=== PATIENT | male | born 1935 | race Caucasian/White ===

== ENCOUNTER 2018-09-23 14:57 | Emergency (ER) | payer MEDICARE ==
[~2018-09-23 14:57] MED LIST: AMIO200T5 PO; ASPI-555 PO; CITA10TA7 PO; CYAN1TAB68 PO; HYDR-4064 PO; L.AC1CAP6 PO; METO-408 PO; POLY454P5 PO; PRAV20TA4 PO; SITA50TA PO; XALA2.5OS OD
[2018-09-23 15:10] LABS: EOSINOPHILS % (AUTO) 1.4 % (0.0-8.0); HEMATOCRIT 41.7 % (42-54); LYMPHOCYTES % (AUTO) 17.9 % (21.0-51.0); MEAN CORPUSCULAR HEMOGLOBIN 31.2 pg (27.0-33.0); MEAN CORPUSCULAR VOLUME 91.7 fL (79-99); NEUTROPHILS % (AUTO) 71.7 % (40.0-77.0); NUCLEATED RED BLOOD CELLS 0.4 % (0.0-0.19); PLATELET COUNT (AUTO) 204 K/uL (130-400); RED BLOOD CELL COUNT(AUTO) 4.55 MIL/uL (4.50-6.20); RED CELL DISTRIBUTION WIDTH 14.5 % (11.0-15.5); WHITE BLOOD COUNT (AUTO) 8.4 K/uL (4.8-10.8)
[2018-09-23 15:21] LABS: INR 1.49 (0.85-1.15); PARTIAL THROMBOPLASTIN TIME 23.6 SEC (26.3-35.5); PROTHROMBIN TIME 15.5 SEC (9.6-11.6)
[2018-09-23] MEDS ORDERED: ASPIRIN 325 MG TABLET ONE (15:35)
[2018-09-23 15:38] LABS: CREATININE 1.1 mg/dL (0.5-1.5); POTASSIUM 4.6 mmol/L (3.5-5.1)
[2018-09-23 15:43] LABS: ALBUMIN 3.8 g/dL (3.5-5.0); BILIRUBIN,TOTAL 0.4 mg/dL (0.2-1.0); TOTAL PROTEIN, SERUM 7.7 g/dL (6.0-8.3)
== END 2018-09-23 19:08 | disposition home or self-care (01) ==
LOC: EDH 14:57
DX: R07.89 Other chest pain (principal); I10 Essential (primary) hypertension; I25.810 Atherosclerosis of coronary artery bypass graft(s) without angina pectoris; E11.9 Type 2 diabetes mellitus without complications; E78.5 Hyperlipidemia, unspecified; Z90.49 Acquired absence of other specified parts of digestive tract; Z98.890 Other specified postprocedural states; Z79.82 Long term (current) use of aspirin; Z79.01 Long term (current) use of anticoagulants
CPT/HCPCS: 36415; 71046; 80053; 82550; 83735; 84484; 85025; 85610; 85730; 93005; 99291

== ENCOUNTER 2018-11-22 08:22 | Observation (INO) | payer MEDICARE ==
[2018-11-20 11:21] LABS: EOSINOPHILS % (AUTO) 2.2 % (0.0-8.0); HEMATOCRIT 42.1 % (42-54); LYMPHOCYTES % (AUTO) 22.7 % (21.0-51.0); MEAN CORPUSCULAR HEMOGLOBIN 30.4 pg (27.0-33.0); MEAN CORPUSCULAR VOLUME 92.2 fL (79-99); MONOCYTES % (AUTO) 6.8 % (3.0-13.0); NEUTROPHILS % (AUTO) 67.3 % (40.0-77.0); PLATELET COUNT (AUTO) 189 K/uL (130-400); RED BLOOD CELL COUNT(AUTO) 4.57 MIL/uL (4.50-6.20); RED CELL DISTRIBUTION WIDTH 14.2 % (11.0-15.5); WHITE BLOOD COUNT (AUTO) 7.4 K/uL (4.8-10.8)
[2018-11-20 11:29] LABS: CREATININE 1.1 mg/dL (0.5-1.5); POTASSIUM 5.1 mmol/L (3.5-5.1)
[2018-11-20 11:31] LABS: INR 2.1 (0.85-1.15); PARTIAL THROMBOPLASTIN TIME 36.7 SEC (26.3-35.5); PROTHROMBIN TIME 21.7 SEC (9.6-11.6)
[2018-11-20 11:47] VITALS: BP 130/76
--- NOTE | 2018-11-21 10:15 | NUR ---
ABNORMAL LABS BHARGAV PAREDES NOTIFIED OF PT'S RT Addendum: 11/21/18 at 1349 by DUYEN CRISTOBAL RN RN CORRECTION: BHARGAV PAREDES NOTIFIED OF PT'S PT 21.7, INR 2.10, PTT 36.7 ORDERED TO REPEAT PT/PTT UPON ARRIVAL TO DAY PT DOS AND MAKE SURE PT STOPPED COUMADIN.
[~2018-11-22] VITALS: Ht 190.5 cm; Wt 103.7 kg
[2018-11-22] VITALS (12 sets, daily range): BP systolic 110–136; BP diastolic 56–84
[~2018-11-22 08:22] MED LIST changes: +BRIM5DRO4 OP; -CITA10TA7 PO; -CYAN1TAB68 PO; +EYEL1TOW2 TP; +FISH1CAP27 PO; -HYDR-4064 PO; -L.AC1CAP6 PO; +LATA7.5D OP; +METF-444 PO; +POLY17PO29 PO; -POLY454P5 PO; -SITA50TA PO; +TIMO5TAB OP; +WARF-57 PO; +WARF7.5T49 PO; -XALA2.5OS OD
[2018-11-22 08:53] LABS: INR 1.49 (0.85-1.15); PARTIAL THROMBOPLASTIN TIME 32.3 SEC (26.3-35.5); PROTHROMBIN TIME 15.5 SEC (9.6-11.6)
[2018-11-22] MEDS ORDERED: SODIUM CHLORIDE 0.9% 1000ML 1,000 ML IV ONE (09:43)
[2018-11-22] MEDS ORDERED: BUPIVACAINE/PF 0.25% 30ML VIAL IJ ONE (11:18)
[2018-11-22] MEDS ORDERED: MEPERIDINE-PF 25 MG/ML SYG ONE ×2 (11:19→12:50)
[2018-11-22] MEDS ORDERED: LIDOCAINE HCL 1% MDV 50ML VIAL ONE (11:19)
[2018-11-22] MEDS ORDERED: CEFAZOLIN SODIUM 1 GM VIAL ONE (11:19)
[2018-11-22] MEDS ORDERED: MIDAZOLAM HCL 1 MG/ML 2ML VIAL ONE ×2 (11:19→12:50)
[2018-11-22] MEDS ORDERED: IODIXANOL 320 MG/ML 100 ML VIAL ONE (11:34)
[2018-11-22] MEDS ORDERED: THROMBIN-JMI 5000 UNIT/VIAL TP ONE (13:00)
[2018-11-22] MEDS ORDERED: ALPRAZOLAM 0.5 MG TABLET PO PRN (13:15)
[2018-11-22] MEDS ORDERED: DEXTROSE 50%-WATER 50 ML DISP.SYRIN IV PRN (13:15)
[2018-11-22] MEDS ORDERED: ACETAMINOPHEN-CODEINE 300/30MG TAB PO PRN ×2 (13:15)
[2018-11-22] MEDS ORDERED: ONDANSETRON HCL 4 MG/2 ML VIAL IV PRN (13:15)
[2018-11-22] MEDS ORDERED: POLYETHYLENE GLYCOL 3350 17 GM POWD.PACK PO PRN (13:30)
--- NOTE | 2018-11-22 13:45 | NUR ---
ICE PACK TO LEFT UPPER CHEST DRESSING.LEFT ARM SLING IN PLACE.
--- NOTE | 2018-11-22 13:45 | NUR ---
PATIENT RETUNED FROM THREAD CHECKER IN NO DISTRESS, DRESSING TO LEFT UPPER CHEST IS CLEAN AND DRY. NO SIGNS OF ACTIVE BLEEDING TO DRESSING TO LEFT UPPER CHEST. PATIENT NOTIFIED ON BEING ON BEDREST AND NOT TO LIFT ARM ABOVE SHOULDER LEVEL FOR 6 WEEKS. BOTH PATIENT AND AGREED TO COMPLY. AND VERBALIZED UNDERSTANDING.
--- NOTE | 2018-11-22 14:28 | NUR ---
NOTIFIED PRIMARY MD OF PATIENT DR. PAUL ESPINOZA IN [place], SPOKE TO DILCIA AT MD OFFICE. STATED SHE WILL NOTIFY MD. PAGED DR. MONTOYA TO NOTIFY OF PT ADMISSION, PENDING CALL BACK.
--- NOTE | 2018-11-22 14:44 | NUR ---
SPOKE TO DR. MONTOYA ABOUT NEW CONSULT, PT INFORMATION GIVEN. PLEASE CALL WITH PT ROOM NUMBER.
--- NOTE | 2018-11-22 15:00 | NUR ---
REPORT RECEIVED REPORT FROM Ede LUX RN. PT RESTING COMFORTABLY IN BED. LEFT SLING IN PLACE . ICE BAG IN PLACE TO LEFT UPPER CHEST. INSTRUCTED ON IMPORTANCE OF BEING ON BEDREST. VERBALIZED UNDERSTANDING. Addendum: 11/22/18 at 1556 by TING DONNELLY RN RN LEFT UPPER CHEST SITE SOFT TO TOUCH. NO BLEEDING, OOZING NOTED.
--- NOTE | 2018-11-22 15:00 | NUR ---
REPORT TO ROLLY FLETCHER
--- NOTE | 2018-11-22 15:15 | NUR ---
SITE CHECK SITE CHECK TO LEFT UPPER CHEST DRY AND INTACT. SOFT TO TOUCH.
--- NOTE | 2018-11-22 15:30 | NUR ---
STATUS PT RECEIVED FROM DAY PT VIA BED S/P BiV ICD UPGRADE BY DR Leonor SCANLON. LT UPPER CHEST PRESSURE DSG, DRY & INTACT. NO BLEEDING, NO HEMATOMA NOTED. SLING TO LT ARM. ARM PRECAUTIONS REINFORCED. STATES UNDERSTANDING. DENIES INCISIONAL PAIN. A/O X 3. NO SOB. NO DISTRESS NOTED. TELE: V PACED 70s. DENIES N/V AND/OR DIARRHEA. PT INFORMED BEDREST UNTIL AM. ORIENTED TO . INSTRUCTED TO CALL FOR ASSISTANCE. CALL G[facility]O W/IN REACH.
--- NOTE | 2018-11-22 15:30 | NUR ---
TRANSFERRED PT TRANSFERRED VIA BED TO ROOM 221. PT AAOX3. LEFT ARM IN SLING. DENIES ANY DISCOMFORT, PAIN AT THIS TIME.
[2018-11-22] MEDS ORDERED: PHARMACY COMMUNICATION MISC SCH (16:00)
[2018-11-22] MEDS: CEFAZOLIN SODIUM 1 GM VIAL IVP SCH ×2 (16:35→20:09)
--- NOTE | 2018-11-22 16:38 | NUR ---
MD NOTIFICATION DR MONTOYA NOTIFIED PT ARRIVED TO RM 221.
[2018-11-22] MEDS: INSULIN HUMULIN R 100 UNIT/ML 3ML SQ SCH ×2 (16:55→20:49)
[2018-11-22] MEDS: FISH OIL 1000 MG/CAP PO SCH (20:10)
[2018-11-22] MEDS: DOXYCYCLINE HYCLATE 100 MG TABLET PO SCH (20:10)
[2018-11-22] MEDS: METOPROLOL TARTRATE 25 MG TAB PO SCH (20:13)
[2018-11-22] MEDS ORDERED: TIMOLOL MALEATE OP SCH (21:00)
[2018-11-22] MEDS ORDERED: SIMVASTATIN 20 MG TABLET PO SCH (21:00)
[2018-11-22] MEDS ORDERED: TIMOLOL MALEATE 5 MG OP SCH (21:00)
[2018-11-22] MEDS ORDERED: LATANOPROST 2.5 ML DROPS OP SCH (21:00)
[2018-11-22] MEDS: BRIMONIDINE TARTRATE 0.2% 5 ML BOTTLE OP SCH (21:14)
[2018-11-23] MEDS: CEFAZOLIN SODIUM 1 GM VIAL IVP SCH ×2 (03:25→04:31)
[2018-11-23 04:38] VITALS: BP 121/77
[2018-11-23] MEDS: INSULIN HUMULIN R 100 UNIT/ML 3ML SQ SCH (07:30)
--- NOTE | 2018-11-23 07:45 | NUR ---
AM ASSESSMENT PT LAYING IN BED, HOB ELEVATED 30 DEGREES, RESTING. DAUGHTER @ BEDSIDE. A/O X 3. NO SOB. NO DISTRESS NOTED. DENIES CHEST PAIN OR DISCOMFORT. DENIES PALPITATIONS. DENIES INCISIONAL PAIN. TELE: V PACED 70s. LT UPPER CHEST PRESSURE DSG REMOVED. TELFA & OPSITE DRY & INTACT. NO BLEEDING, NO HEMATOMA NOTED. SLING ARM IN SLING. ARM PRECAUTIONS REINFORCED. UP W/ASSISTANCE. INSTRUCTED TO CALL FOR ASSISTANCE. CALL GUSTABO W/IN REACH.
[2018-11-23 07:57] VITALS: BP 118/77
[2018-11-23] MEDS: DOXYCYCLINE HYCLATE 100 MG TABLET PO SCH (08:02)
[2018-11-23] MEDS: FISH OIL 1000 MG/CAP PO SCH (08:02)
[2018-11-23] MEDS: METOPROLOL TARTRATE 25 MG TAB PO SCH (08:02)
[2018-11-23] MEDS: BRIMONIDINE TARTRATE 0.2% 5 ML BOTTLE OP SCH (08:06)
[2018-11-23] MEDS ORDERED: EYELID CLEANSER COMBINATION TP SCH (09:00)
[2018-11-23] MEDS ORDERED: ASPIRIN 81 MG EC TAB PO SCH (09:00)
[2018-11-23] MEDS ORDERED: AMIODARONE HCL 200 MG TABLET PO SCH (09:00)
[2018-11-23] MEDS ORDERED: DOXY100T2 PO (09:59)
--- NOTE | 2018-11-23 10:35 | NUR ---
DISCHARGE VERBAL & WRITTEN DISCHARGE INSTRUCTIONS REVIEWED & GIVEN TO PT & DAUGHTER, ENMA JAMES. QUESTIONS ENCOURAGED & CLARIFIED. PROPER CARE & ACTIVITY AFTER BiV ICD UPGRADE REVIEWED & REINFORCED. NEW PRESCRIBED MEDICATIONS REVIEWED. PRESCRIPTION GIVEN TO PT; SIGNED COPY PLACED IN CHART. PT & DAUGHTER REMINDED TO RESUME COUMADIN ON 11/27/2018. TELE RACHELLE REMOVED. IV DISCONTINUED. PT & DAUGHTER TO GATHER PERSONAL BELONGINGS. WILL NOTIFY STAFF WHEN READY TO BE TAKEN TO PRIVATE VEHICLE.
--- NOTE | 2018-11-23 10:45 | NUR ---
DISCHARGE PT TAKEN TO PRIVATE VEHICLE VIA WC BY Griselda DELGADO PCP, ACCOMPANIED BY DAUGHTER. NO DISTRESS NOTED.
== END 2018-11-23 10:45 | disposition home or self-care (01) ==
LOC: DAH 08:22 → DAHIP 08:23 → DAH 08:23 → 2DH 15:29
PROVIDERS: ADMIT Internal Medicine; ATTEND Internal Medicine
DX: I42.8 Other cardiomyopathies (principal); D68.59 Other primary thrombophilia; I11.0 Hypertensive heart disease with heart failure; I50.43 Acute on chronic combined systolic (congestive) and diastolic (congestive) heart failure; E11.9 Type 2 diabetes mellitus without complications; E78.2 Mixed hyperlipidemia; I42.9 Cardiomyopathy, unspecified; I48.0 Paroxysmal atrial fibrillation; Z45.02 Encounter for adjustment and management of automatic implantable cardiac defibrillator; Z82.5 Family history of asthma and other chronic lower respiratory diseases; Z82.49 Family history of ischemic heart disease and other diseases of the circulatory system; Z83.3 Family history of diabetes mellitus; Z95.3 Presence of xenogenic heart valve; Z95.810 Presence of automatic (implantable) cardiac defibrillator; Z79.01 Long term (current) use of anticoagulants
CPT/HCPCS: 33225; 33264; 36415 ×2; 71046; 80048; 82948 ×5; 85025; 85610 ×2; 85730 ×2; 93005; 96372; 96374; 96376; A4606; C1769 ×2; C1882; C1894; C1900; G0378 ×26; J0690 ×3; J1815; J2175 ×2; J2250 ×2; J3490 ×3; J7030; Q9967; 99156; 99157